=== PATIENT | male | born 2000 | race Caucasian/White ===

== ENCOUNTER 2022-03-30 14:41 | Inpatient (IN) ==
[2022-03-30] MEDS ORDERED: SODIUM CHLORIDE 0.9% 1000ML 1,000 ML IV SCH (15:16)
--- NOTE | 2022-03-30 15:30 | Emergency Department Note ---
Impression & Plan Light-headedness, Pneumonia, Fever and chills, Sore throat ED Provider Note CHIEF COMPLAINT: Near syncope HISTORY OF PRESENT ILLNESS: Cam Orellana is a 22 year old male who presents to the Emergency Department for evaluation of persistent lightheadedness/dizziness, feeling as if he is going to pass out, which has been worsening since this morning. He states that his symptoms are constant but become worse with sitting/standing upright. He denies having any pain at this time but just states that he feels weak, tired and confused. The patient was recently ill with fevers/chills, body aches, sore throat, chest tightness and cough. He was seen in this ED on 03/27/22 for these symptoms and was diagnosed with pneumonia for which he was prescribed Cefdinir/Doxycycline. The patient did take the antibiotic as prescribed but states that he developed a rash which was thought to be an allergic reaction to the medication. He was seen in the ED again yesterday for this and was told to stop taking the Cefdinir/Doxycycline, switched to a Z-pack instead. The patient has been taking this antibiotic as prescribed and states that his rash has completely resolved. He has also been taking Tylenol, ibuprofen, Delsym, Melatonin and Benadryl with some improvement. He does state that his breathing and chest tightness has improved, however, he has continued with intermittent perceived fevers/chills and a worsening sore throat over the past few days. He then developed the lightheadedness/dizziness in addition to the other symptoms as described above today. The patient states that he has been drinking hot tea and some water, only eating pretzels and small things throughout the day, though he does feel that he is getting enough. He notes mild abdominal pain and has 1-2 movements of diarrhea daily (states started after taking the initial antibiotics). No nausea or vomiting. Due to his ongoing symptoms, he presents to the ED for further evaluation today. REVIEW OF SYSTEMS: 10 systems were reviewed and were negative unless otherwise stated in HPI as above PHYSICAL EXAM: VITALS: Vitals are noted on the nurse's note and reviewed by myself. Mildly tachycardic and hypertensive. Improved on recheck. Afebrile. Additional vital signs stable General: Resting supine in bed, appears tired but no acute distress HEENT: Normocephalic, pupils 3 mm and reactive to light with EOMI, bilaterally. Bilateral TMs clear without abnormal bulging or fluid. Mucous membranes moist, bilateral tonsillar edema and erythema, no exudates. No uvular deviation, Airway patent Neck: Mild bilateral lymphadenopathy without significant tenderness to palpation, mild paraspinal tenderness but ROM intact without significant pain, no meningismus Resp: Good inspiratory effort on room air, lung sounds clear bilaterally without wheezing, crackles or rales, chest wall non-tender CV: Tachycardic rate, regular rhythm, normal S1-S2, peripheral pulses palpated Abd: Soft, non-distended, mild tenderness to palpation of the left lower quadrant, no rebound, guarding or rigidity MSK: Moving all extremities without apparent pain or difficulty Integumentary: Warm, dry, no appreciable rash Neuro: Awake, alert and oriented x 3, interacting and answering questions appropriately Differential diagnosis includes viral syndrome, bacterial infection, pharyngitis, mononucleosis, COVID-19, pneumonia, influenza, bronchitis, meningitis, cardiac etiology, electrolyte abnormality, BPPV, dehydration, as well as others were entertained. EMERGENCY DEPARTMENT COURSE: Physical exam and history were performed. Nursing triage notes, EMR, and medication list were personally reviewed. Patient appears to have persistent lightheadedness/dizziness, feeling as if he is going to pass out, which is been worsening since this morning. Of note, he was recently diagnosed with pneumonia for which he was initially prescribed cefd inir and doxycycline, however after having an allergic reaction to these medications, this was stopped and he was switched to azithromycin yesterday. Additional history as described above. See physical exam as noted above. Continuous cardiac rehabilitation specialist: Order was placed for continuous cardiac rehabilitation specialist. Patient was placed on the cardiac rehabilitation specialist. Patient was noted to be in sinus tachycardia at an initial rate of 109 bpm. EKG was obtained and reviewed by myself. This did show normal sinus rhythm at 81 bpm. There was an incomplete right bundle branch block, however when compared to study from 11/10/2021, no significant change was found. The patient was offered medication. IV access was established and he was given Tylenol 1000 mg and NSS 1 L. Labs were obtained and reviewed by myself as below. Of note, no concern for leukocytosis with a WBC of 5.03. Very mild anemia with hemoglobin 13.6. Electrolytes WNL. Renal indices stable. LFTs nondiagnostic. PT/INR WNL, PTT mildly elevated at 32.5 seconds. D-dimer also mildly elevated at 660. Monoscreen negative. Chest x-ray was obtained and showed progressively worsened left basilar opacities suggestive of pneumonia. Upon reevaluation, the patient was still feeling very lightheaded/dizzy which had not improved after receiving the IV fluids, Tylenol and after drinking several glasses of water and eating crackers. Given his elevated D-dimer and worsening findings on the chest x-ray, I did discuss with him about obtaining a CT angiogram of his chest to assess for possible PE. Given his ongoing lightheadedness/dizziness, also discussed obtaining a CAT scan of his head for further evaluation. Patient agreed to obtain both of the studies. CAT scan of the head was obtained and was reviewed by radiologist and myself as below. Imaging was negative for acute intracranial findings. CTA chest was also obtained and was negative for PE. There was moderate left lower lobe consolidation consistent with pneumonia, minimal airspace opacity within the left upper lobe and right middle lobe. Prominent left hilar lymph nodes likely reactive. Trace left pleural effusion. With the findings of worsening pneumonia on imaging, the patient would likely benefit from modification of antibiotics. Due to his allergies, he was started on Levaquin 750 mg with plans to continue this once daily for a total of 5 days. Upon reevaluation, the patient was still feeling very lightheaded and dizzy. I discussed the results of the above findings with him. He was given meclizine 25 mg for possible vertiginous cause but this did not help his symptoms, either. Due to his ongoing symptoms with third visit to the ED in the last several d ays,I feel that he would benefit from continued management in the hospital. Also discussed this with my attending physician, Dr. Sawyer. I did contact Dr. Johnson of the [facility] hospitalist group. She agreed to evaluate the patient. The patient verbalized understanding and agreement with the treatment plan as above. The chart was completed utilizing [employer] Speech Voice Recognition Software. Grammatical errors, random word insertions, pronoun errors, and incomplete sentences are an occasional consequence of this system due to software limitations, ambient noise, and hardware issues. Any formal questions or concerns about the content, text, or information contained within the body of this dictation should be directly addressed to the provider for clarification. Past Med/Surg History Medical History No acute medical problems Surgical History No pertinent past surgical history Social History Smoking Status: Smoker, status unknown Tobacco Type: Cigarettes and E-cigarettes / Vaping Cigarettes Per Day: OCCASIONALLY DOES ON WEEKENDS AT COLLEGE WITH FRIENDS.; Second Hand Exposure: No; Do You Dip or Chew Tobacco: No; Hx Alcohol Use: Yes Alcohol type: beer Hx Substance Use: No Preferred Language: Spanish Communication Ability: Effective [employer] Required: No Beliefs That Will Affect Care: None Current Living Situation: Other Current Living Situation Comment: COLLEGE STUDENT LIVES WITH ROOMMATE Other Information That Helps Us Care for You: No Feels Safe at Home: Yes Safety Concerns: Feels Safe At This Time Assistive Devices: None Allergies Allergies Allergy/AdvReac Type Severity Reaction Status Date / Time cefdinir Allergy Intermediate RASH--WAS Verified 03/30/22 16:30 TAKING DOXYCYCLINE AT SAME TIME. doxycycline Allergy Intermediate RASH--WAS Verified 03/30/22 16:30 TAKING CEFDINIR AT THE SAME TIME. milk AdvReac Intermediate Gastrointestinal Verified 03/30/22 16:30 Upset Home Meds Home Medications Medication Instructions Recorded Confirmed acetaminophen 500 mg tablet 1,000 mg PO DIRECTED PRN 03/30/22 03/30/22 (Tylenol Extra Strength) ibuprofen 200 mg tablet (Advil) 600 mg PO DIRECTED PRN 03/30/22 03/30/22 Previous Rx's Medication Instructions Recorded azithromycin 250 mg tablet See Rx Instructions .ROUTE 03/29/22 (Zithromax Z-Efrain) .COMPLEX #6 tab levofloxacin 750 mg tablet 750 mg PO DAILY 4 Days #4 tab 03/30/22 Results & Data (ED) Vital Signs Vital Signs - 24 hr 03/30/22 14:43 03/30/22 15:32 03/30/22 17:15 Temperature 36.6 C 37.2 C Temperature Source Temporal Artery Scan Oral Pulse Rate - Lying Pulse Rate - Sitting Pulse Rate - Standing Pulse Rate 109 H Pulse Rate [Left Radial] 81 96 H Pulse Rate from SpO2 Sensor Pulse Rhythm [Left Radial] Regular Pulse Strength [Left Radial] Respiratory Rate 18 20 18 Respiratory Effort / Characteristics Non-Labored Respiratory Depth Normal Respiratory Pattern Regular Blood Pressure - Lying Blood Pressure - Sitting Blood Pressure- Standing Blood Pressure 148/87 H Blood Pressure [Left Arm] 115/71 Blood Pressure Mean 107 Blood Pressure Mean [Left Arm] 85 Blood Pressure Position [Left Arm] Pulse Oximetry 97 97 100 Oxygen Delivery Method Room Air Room Air Room Air Sepsis Recent Fever Within 48 Hours No Sepsis New/Unexplained Change in Mental Status No Sepsis Action Taken by Nursing No Action Required 03/30/22 18:26 03/30/22 18:30 03/30/22 18:51 Temperature Temperature Source Pulse Rate - Lying Pulse Rate - Sitting Pulse Rate - Standing Pulse Rate 93 H 89 92 H Pulse Rate [Left Radial] Pulse Rate from SpO2 Sensor 93 H 91 H 92 H Pulse Rhythm [Left Radial] Pulse Strength [Left Radial] Respiratory Rate 22 22 14 Respiratory Effort / Characteristics Respiratory Depth Respiratory Pattern Blood Pressure - Lying Blood Pressure - Sitting Blood Pressure- Standing Blood Pressure 128/89 139/89 Blood Pressure [Left Arm] Blood Pressure Mean 102 105 Blood Pressure Mean [Left Arm] Blood Pressure Position [Left Arm] Pulse Oximetry 99 99 99 Oxygen Delivery Method Sepsis Recent Fever Within 48 Hours Sepsis New/Unexplained Change in Mental Status Sepsis Action Taken by Nursing 03/30/22 19:00 03/30/22 19:30 03/30/22 20:00 Temperature Temperature Source Pulse Rate - Lying Pulse Rate - Sitting Pulse Rate - Standing Pulse Rate 93 H 92 H 86 Pulse Rate [Left Radial] Pulse Rate from SpO2 Sensor 91 H 91 H 87 Pulse Rhythm [Left Radial] Pulse Strength [Left Radial] Respiratory Rate 18 13 21 Respiratory Effort / Characteristics Respiratory Depth Respiratory Pattern Blood Pressure - Lying Blood Pressure - Sitting Blood Pressure- Standing Blood Pressure 126/74 130/80 139/75 Blood Pressure [Left Arm] Blood Pressure Mean 91 96 96 Blood Pressure Mean [Left Arm] Blood Pressure Position [Left Arm] Pulse Oximetry 96 98 97 Oxygen Delivery Method Sepsis Recent Fever Within 48 Hours Sepsis New/Unexplained Change in Mental Status Sepsis Action Taken by Nursing 03/30/22 20:06 03/30/22 20:21 03/30/22 20:22 Temperature Temperature Source Pulse Rate - Lying 105 H Pulse Rate - Sitting 113 H Pulse Rate - Standing 115 H Pulse Rate 90 106 H Pulse Rate [Left Radial] Pulse Rate from SpO2 Sensor 92 H 106 H Pulse Rhythm [Left Radial] Pulse Strength [Left Radial] Respiratory Rate 17 21 Respiratory Effort / Characteristics Respiratory Depth Respiratory Pattern Blood Pressure - Lying 125/64 Blood Pressure - Sitting 139/87 Blood Pressure- Standing 135/84 Blood Pressure 125/64 135/84 Blood Pressure [Left Arm] Blood Pressure Mean 84 101 Blood Pressure Mean [Left Arm] Blood Pressure Position [Left Arm] Pulse Oximetry 99 99 Oxygen Delivery Method Sepsis Recent Fever Within 48 Hours Sepsis New/Unexplained Change in Mental Status Sepsis Action Taken by Nursing 03/30/22 20:30 03/30/22 20:49 03/30/22 21:00 Temperature 36.9 C Temperature Source Oral Pulse Rate - Lying Pulse Rate - Sitting Pulse Rate - Standing Pulse Rate 91 H 98 H Pulse Rate [Left Radial] 82 Pulse Rate from SpO2 Sensor Pulse Rhythm [Left Radial] Regular Pulse Strength [Left Radial] Normal Respiratory Rate 21 18 13 Respiratory Effort / Characteristics Non-Labored Spontaneous Respiratory Depth Normal Respiratory Pattern Blood Pressure - Lying Blood Pressure - Sitting Blood Pressure- Standing Blood Pressure 115/67 115/67 Blood Pressure [Left Arm] 115/67 Blood Pressure Mean 83 83 Blood Pressure Mean [Left Arm] 83 Blood Pressure Position [Left Arm] Sitting Pulse Oximetry 96 Oxygen Delivery Method Room Air Sepsis Recent Fever Within 48 Hours Sepsis New/Unexplained Change in Mental Status Sepsis Action Taken by Nursing 03/30/22 21:30 Temperature Temperature Source Pulse Rate - Lying Pulse Rate - Sitting Pulse Rate - Standing Pulse Rate 98 H Pulse Rate [Left Radial] Pulse Rate from SpO2 Sensor 98 H Pulse Rhythm [Left Radial] Pulse Strength [Left Radial] Respiratory Rate 21 Respiratory Effort / Characteristics Respiratory Depth Respiratory Pattern Blood Pressure - Lying Blood Pressure - Sitting Blood Pressure- Standing Blood Pressure 123/69 Blood Pressure [Left Arm] Blood Pressure Mean 87 Blood Pressure Mean [Left Arm] Blood Pressure Position [Left Arm] Pulse Oximetry 96 Oxygen Delivery Method Sepsis Recent Fever Within 48 Hours Sepsis New/Unexplained Change in Mental Status Sepsis Action Taken by Nursing Laboratory Data Result diagrams: 03/30/22 15:37 03/30/22 15:37 Lab Results 03/30/22 03/30/22 03/30/22 Range/Units 15:37 15:37 15:37 WBC 5.03 (4.8-10.8) K/uL RBC 4.98 (4.7-6.1) M/uL Hgb 13.6 L (14.0-18.0) g/dL Hct 41.5 L (42-52) % MCV 83.3 (80-100) fL MCH 27.3 (25-34) pg MCHC 32.8 (32-36) g/dL RDW Std Deviation 41.8 (36.4-46.3) fL RDW Coeff of Max 13.7 (11.5-14.5) % Plt Count 167 (130-400) K/uL MPV 9.8 (7.4-10.4) fL Immature Gran % (Auto) 0.4 % Neut % (Auto) 73.6 % Lymph % (Auto) 11.3 % Bradley % (Auto) 11.9 % Eos % (Auto) 2.4 % Baso % (Auto) 0.4 % Neut # (Auto) 3.70 (1.4-6.5) K/uL Lymph # (Auto) 0.57 L (1.2-3.4) K/uL Bradley # (Auto) 0.60 H (0.11-0.59) K/uL Eos # (Auto) 0.12 (0-0.5) K/uL Baso # (Auto) 0.02 (0-0.2) K/uL Immature Gran # (Auto) 0.02 (0.00-0.02) K/uL PT 11.4 (9.0-12.0) Seconds INR 1.1 (0.9-1.1) APTT 32.5 H (21.0-31.0) Seconds PTT Ratio 1.2 D-Dimer (0-500) ug/L FEU Sodium 138 (136-145) mmol/L Potassium 3.6 (3.5-5.1) mmol/L Chloride 105 (98-107) mmol/L Carbon Dioxide 25 (21-32) mmol/L Anion Gap 8 (3-11) BUN 8 (6-23) mg/dl Creatinine 0.70 (0.6-1.4) mg/dl Est Cr Clr Drug Dosing Not Reportable Est GFR ( Amer) > 150.0 ml/min Est GFR (Non-Af Amer) 134.0 ml/min BUN/Creatinine Ratio 11.4 (10-20) Glucose 72 (70-99(Fasting)) mg/dl Calcium 9.0 (8.5-10.1) mg/dl Total Bilirubin 0.4 (0.2-1.0) mg/dl AST 38 (13-39) U/L ALT 42 (7-52) U/L Alkaline Phosphatase 69 (34-104) U/L Troponin I High Sens 4.2 (0-20) pg/ml Total Protein 7.5 (6.0-8.3) gm/dl Albumin 3.9 (3.4-5.0) gm/dl Globulin 3.6 (2.5-4.0) gm/dl Albumin/Globulin Ratio 1.1 (0.9-2) Monoscreen (Negative) 03/30/22 03/30/22 Range/Units 15:37 17:28 WBC (4.8-10.8) K/uL RBC (4.7-6.1) M/uL Hgb (14.0-18.0) g/dL Hct (42-52) % MCV (80-100) fL MCH (25-34) pg MCHC (32-36) g/dL RDW Std Deviation (36.4-46.3) fL RDW Coeff of Max (11.5-14.5) % Plt Count (130-400) K/uL MPV (7.4-10.4) fL Immature Gran % (Auto) % Neut % (Auto) % Lymph % (Auto) % Bradley % (Auto) % Eos % (Auto) % Baso % (Auto) % Neut # (Auto) (1.4-6.5) K/uL Lymph # (Auto) (1.2-3.4) K/uL Bradley # (Auto) (0.11-0.59) K/uL Eos # (Auto) (0-0.5) K/uL Baso # (Auto) (0-0.2) K/uL Immature Gran # (Auto) (0.00-0.02) K/uL PT (9.0-12.0) Seconds INR (0.9-1.1) APTT (21.0-31.0) Seconds PTT Ratio D-Dimer 660 H* (0-500) ug/L FEU Sodium (136-145) mmol/L Potassium (3.5-5.1) mmol/L Chloride (98-107) mmol/L Carbon Dioxide (21-32) mmol/L Anion Gap (3-11) BUN (6-23) mg/dl Creatinine (0.6-1.4) mg/dl Est Cr Clr Drug Dosing Est GFR ( Amer) ml/min Est GFR (Non-Af Amer) ml/min BUN/Creatinine Ratio (10-20) Glucose (70-99(Fasting)) mg/dl Calcium (8.5-10.1) mg/dl Total Bilirubin (0.2-1.0) mg/dl AST (13-39) U/L ALT (7-52) U/L Alkaline Phosphatase (34-104) U/L Troponin I High Sens (0-20) pg/ml Total Protein (6.0-8.3) gm/dl Albumin (3.4-5.0) gm/dl Globulin (2.5-4.0) gm/dl Albumin/Globulin Ratio (0.9-2) Monoscreen Negative (Negative) Administered Medications Acetaminophen (Acetaminophen 325 Mg Tab) 650 mg PO Q4H PRN PRN Reason: Pain or Fever Stop: 04/29/22 23:10 Last Admin: 03/31/22 00:19 Dose: 650 mg Documented by: [id number] Discontinued Medications Acetaminophen (Acetaminophen 500 Mg Tab) 1,000 mg PO NOW STA Stop: 03/30/22 18:28 Last Admin: 03/30/22 18:33 Dose: 1,000 mg Documented by: [id number] Sodium Chloride (Nss 1000ml) 1,000 mls @ 999 mls/hr IV .Q1H1M SUSAN Stop: 03/30/22 16:16 Last Infusion: 03/30/22 16:44 Dose: 0 mls/hr Documented by: [id number] Admin: 03/30/22 15:41 Dose: 999 mls/hr Documented by: [id number] Lactated Ringer's (Lr) 1,000 mls @ 999 mls/hr IV .Q1H1M STA Stop: 03/30/22 22:31 Last Infusion: 03/30/22 23:50 Dose: 0 mls/hr Documented by: [id number] Admin: 03/30/22 22:08 Dose: 999 mls/hr Documented by: [id number] Ioversol (Optiray 320 125ml) 118 ml IV ONCE ONE Stop: 03/30/22 18:44 Last Admin: 03/30/22 18:47 Dose: 118 ml Documented by: [id number] Levofloxacin (Levofloxacin 750 Mg Tab) 750 mg PO ONE ONE Stop: 03/30/22 19:23 Last Admin: 03/30/22 19:49 Dose: 750 mg Documented by: [id number] Meclizine HCl (Meclizine Hcl 25 Mg Tab) 25 mg PO NOW STA Stop: 03/30/22 20:07 Last Admin: 03/30/22 20:23 Dose: 25 mg Documented by: [id number] Imaging Data Radiologist's Impression: Chest X-Ray 03/30/22 15:15 XR chest 1V portable HISTORY: 22 years-old Male recent pneumonia acute shortness of breath COMPARISON: Chest radiograph 03/27/2022 TECHNIQUE: AP view of the chest FINDINGS: Left basilar airspace opacities have progressively worsened from prior. Cardiomediastinal and hilar silhouettes are within normal limits. No pneumothorax, pleural effusion or overt pulmonary edema. Bones appear grossly intact. IMPRESSION: Progressively worsened left basilar opacities suggestive of pneumonia ACT 112: Negative or not required by law. The above report was generated using voice recognition software. It may contain grammatical, syntax or spelling errors. Electronically signed by: Paul Li M.D. 03/30/2022 4:20 PM Chest CTA 03/30/22 18:16 CT ANGIOGRAPHY OF THE CHEST, PULMONARY EMBOLUS PROTOCOL CLINICAL HISTORY: Near syncope. Chest pain. COMPARISON STUDY: Chest radiograph March 30, 2022. TECHNIQUE: Following IV administration of 118 mL of Optiray, helical axial images of the chest were obtained utilizing the pulmonary embolus protocol. Maximal intensity projections and sagittal and coronal reformats were viewed on an independent 3D workstation. IV contrast was administered without complication. Automated exposure control was utilized for the study. A dose lowering technique was utilized adhering to the principles of ALARA. CT DOSE: 1139.00 mGy.cm FINDINGS: No pulmonary emboli are identified. There is no thoracic aortic dissection. Size of the heart is normal. There is no pericardial effusion. No pneumothorax is present. There is a trace left pleural effusion. A few prominent left hilar lymph nodes are noted. These are likely reactive. Moderate left lower lobe consolidation is noted. Minimal airspace opacity within the left and right lower lobe is present. Central airways are patent. There is no cavitation. No acute fracture within the visualized bony thorax. Visualized portions of the upper abdomen are unremarkable. Note is made of a 1.5 cm right lobe thyroid nodule. This contains a calcification. This nodule may be taller than wide. IMPRESSION: 1. No pulmonary emboli identified. 2. Moderate left lower lobe consolidation consistent with pneumonia. Minimal airspace opacity within the left upper lobe and right middle lobe. 3. Prominent left hilar lymph nodes which are likely reactive. 4. Trace left pleural effusion. 5. Indeterminate 1.5 cm right lobe thyroid nodule. Nonemergent thyroid ultrasound is recommended. 5. ACT 112: Positive. There are findings on this exam that require communication between the performing entity and the patient following Patient Test Result Information Act ([place] Act 112) guidelines. Electronically signed by: Cam Riojas M.D. 03/30/2022 6:[address] 03/30/22 18:16 CT OF THE HEAD WITHOUT CONTRAST CLINICAL HISTORY: near syncope COMPARISON STUDY: No previous studies for comparison. TECHNIQUE: Helical axial images of the head were obtained without IV contrast. Automated exposure control was utilized for the study. A dose lowering technique was utilized adhering to the principles of ALARA. FINDINGS: No acute intracranial hemorrhage, midline shift or mass effect is present. The ventricular system is unremarkable. The basal cisterns are patent. No extra-axial collections are present. There are no findings to suggest acute dural sinus thrombosis or acute territorial infarct. No significant calvarial abnormalities are present. Visualized portions of the sinuses and mastoid air cells are clear. IMPRESSION: No acute intracranial findings. ACT 112: Negative or not required by law. Electronically signed by: Cam Riojas M.D. 03/30/2022 6:53 PM Discharge Plan Visit Data Chief Complaint: Syncope (Near Syncope) Stated Complaint: LIGHT HEADED, DIZZINESS, VOMITING, COUGH ED Provider: Tod Sawyer ED Midlevel Provider: Fide Bermudez Discharge Problem: Light-headedness, Pneumonia, Fever and chills, Sore throat Patient Disposition: Admitted As Inpatient Condition: Good Discharge Instructions Interventions: ED Discharge Assessment Last Done: 03/30/22 22:48
[2022-03-30 16:03] LABS: INR 1.1 (0.9-1.1); Partial Thromboplastin Ratio 1.2; Partial Thromboplastin Time 32.5 Seconds (21.0-31.0); Prothrombin Time 11.4 Seconds (9.0-12.0)
[2022-03-30 16:14] LABS: Alanine Aminotransferase 42 U/L (7-52); Albumin Globulin Ratio 1.1 (0.9-2); Albumin Level 3.9 gm/dl (3.4-5.0); Alkaline Phosphatase 69 U/L (34-104); Anion Gap 8 (3-11); Aspartate Aminotransferase 38 U/L (13-39); BUN Creatinine Ratio 11.4 (10-20); Bilirubin,Total 0.4 mg/dl (0.2-1.0); Blood Urea Nitrogen 8 mg/dl (6-23); Carbon Dioxide 25 mmol/L (21-32); Chloride 105 mmol/L (98-107); Est GFR (African American) > 150.0 ml/min; Globulin 3.6 gm/dl (2.5-4.0); Glucose 72 mg/dl (70-99(Fasting)); Potassium 3.6 mmol/L (3.5-5.1); Sodium 138 mmol/L (136-145); Total Protein 7.5 gm/dl (6.0-8.3)
[2022-03-30 16:20] LABS: Troponin I High Sensitivity 4.2 pg/ml (0-20)
--- NOTE | 2022-03-30 16:23 | XRay Report ---
XR chest 1V portable HISTORY: 22 years-old Male recent pneumonia acute shortness of breath COMPARISON: Chest radiograph 03/27/2022 TECHNIQUE: AP view of the chest FINDINGS: Left basilar airspace opacities have progressively worsened from prior. Cardiomediastinal and hilar s ilhouettes are within normal limits. No pneumothorax, pleural effusion or overt pulmonary edema. Bone s appear grossly intact. IMPRESSION: Progressively worsened left basilar opacities suggestive of pneumonia ACT 112: Negative or not required by law. The above report was generated using voice recognition software. It may contain grammatical, syntax o r spelling errors. Electronically signed by: Paul Li M.D. 03/30/2022 4:20 PM
[2022-03-30 16:26] LABS: Basophils # (auto) 0.02 K/uL (0-0.2); Basophils % (auto) 0.4 %; Eosinophils # (auto) 0.12 K/uL (0-0.5); Eosinophils % (auto) 2.4 %; Hematocrit (blood only) 41.5 % (42-52); Hemoglobin 13.6 g/dL (14.0-18.0); Immature Granulocytes # (auto) 0.02 K/uL (0.00-0.02); Immature Granulocytes % (auto) 0.4 %; Lymphocytes # (auto) 0.57 K/uL (1.2-3.4); Lymphocytes % (auto) 11.3 %; Mean Corpuscular Hemoglobin 27.3 pg (25-34); Mean Corpuscular Hgb Conc 32.8 g/dL (32-36); Mean Corpuscular Volume 83.3 fL (80-100); Mean Platelet Volume 9.8 fL (7.4-10.4); Monocytes % (auto) 11.9 %; Neutrophils % (auto) 73.6 %; Platelet Count 167 K/uL (130-400); RDW Coefficient of Variation 13.7 % (11.5-14.5); RDW Standard Deviation 41.8 fL (36.4-46.3); Red Blood Count 4.98 M/uL (4.7-6.1); White Blood Count 5.03 K/uL (4.8-10.8)
[2022-03-30 18:08] LABS: D Dimer 660 ug/L FEU (0-500)
[2022-03-30] MEDS ORDERED: ACETAMINOPHEN 500 MG TAB PO STA (18:27)
[2022-03-30] MEDS ORDERED: OPTIRAY 320 125ml IV ONE (18:43)
--- NOTE | 2022-03-30 18:54 | CT Scan Report ---
CT OF THE HEAD WITHOUT CONTRAST CLINICAL HISTORY: near syncope COMPARISON STUDY: No previous studies for comparison. TECHNIQUE: Helical axial images of the head were obtained without IV contrast. Automated exposure con trol was utilized for the study. A dose lowering technique was utilized adhering to the principles o f ALARA. FINDINGS: No acute intracranial hemorrhage, midline shift or mass effect is present. The ventricular system is unremarkable. The basal cisterns are patent. No extra-axial collections are present. There are no findings to suggest acute dural sinus thrombosis or acute territorial infarct. No significant calvarial abnormalities are present. Visualized portions of the sinuses and mastoid air cells are elham ar. IMPRESSION: No acute intracranial findings. ACT 112: Negative or not required by law. Electronically signed by: Cam Riojas M.D. 03/30/2022 6:53 PM
--- NOTE | 2022-03-30 19:02 | CT Scan Report ---
CT ANGIOGRAPHY OF THE CHEST, PULMONARY EMBOLUS PROTOCOL CLINICAL HISTORY: Near syncope. Chest pain. COMPARISON STUDY: Chest radiograph March 30, 2022. TECHNIQUE: Following IV administration of 118 mL of Optiray, helical axial images of the chest were o btained utilizing the pulmonary embolus protocol. Maximal intensity projections and sagittal and cor onal reformats were viewed on an independent 3D workstation. IV contrast was administered without co mplication. Automated exposure control was utilized for the study. A dose lowering technique was ut ilized adhering to the principles of ALARA. CT DOSE: 1139.00 mGy.cm FINDINGS: No pulmonary emboli are identified. There is no thoracic aortic dissection. Size of the he art is normal. There is no pericardial effusion. No pneumothorax is present. There is a trace left pl eural effusion. A few prominent left hilar lymph nodes are noted. These are likely reactive. Moderate left lower lobe consolidation is noted. Minimal airspace opacity within the left and right lower lob e is present. Central airways are patent. There is no cavitation. No acute fracture within the visual ized bony thorax. Visualized portions of the upper abdomen are unremarkable. Note is made of a 1.5 cm right lobe thyroid nodule. This contains a calcification. This nodule may be taller than wide. IMPRESSION: 1. No pulmonary emboli identified. 2. Moderate left lower lobe consolidation consistent with pneumonia. Minimal airspace opacity within the left upper lobe and right middle lobe. 3. Prominent left hilar lymph nodes which are likely reactive. 4. Trace left pleural effusion. 5. Indeterminate 1.5 cm right lobe thyroid nodule. Nonemergent thyroid ultrasound is recommended. 5. ACT 112: Positive. There are findings on this exam that require communication between the performing entity and the patient following Patient Test Result Information Act ([place] Act 112) guidelines. Electronically signed by: Cam Riojas M.D. 03/30/2022 6:59 PM
[2022-03-30] MEDS ORDERED: levoFLOXacin 750 MG TAB PO ONE (19:22)
[2022-03-30] MEDS ORDERED: MECLIZINE HCL 25 MG TAB PO STA (20:06)
[2022-03-30] MEDS ORDERED: LACTATED RINGER'S 1,000 ML IV STA (21:31)
--- NOTE | 2022-03-30 22:26 | History & Physical Report ---
Date of Service March 30, 2022 Assessment & Plan (1) Pneumonia: Plan: Pneumonia left lower lobe- opacity on imaging, fevers previously, dyspnea, green sputum production - no oxygen requirement - Levaquin given in EMD- this plus his Azithromycin appropriate coverage overn ight- defer to rounding team in AM for coverage - No concern currently for failure or atypical - symptoms improving - PCT pending - Trace pleural effusion noted on CT scan of chest- follow radiographically (2) Light-headedness: Plan: Described as dizziness without syncope - CT head negative - no seizure - Likley related to benadryl useage at 50mg PO q6 hours - consistent with his dry mucous membranes and tenting skin - Pedraza's solution 1Liter now - Will check TSH and Cortisol (3) Sore throat: Plan: Associated with dry scratchy voice- no tenderness to lymph nodes - no exudates to tonsils or adenoids - Continue supportive care at this time (4) Incidentaloma of thyroid gland: Plan: 1.5 cm right lobe thyroid nodule - follow up with ultrasound imaging - in house or outpatient - TSH with reflex T4 pending - no goiter or tenderness noted with palpation History of Present Illness Primary Care Provider: NO PCP 22 YOM with medical history of: PNA. Patient comes back to the EMD today complaints of dizziness. Overall the patient has been being treated for pneumonia which appeared to start at the beginning of March. He was originally treated in the [facility] on 27Mar2022, he was febrile and was associated with dyspnea, left sided chest tightness, and sore throat. He was given Cefdinir and released. Following that he came back to the [facility] on for concerns of skin rash that was recorded ast itchy and mostly located on his hands and feet as well as some on upper trunk and neck. He was transitioned to Azithromycin and this resulted in resolving of his rash and itching. The patient also endorses yesterday he started taking Benadryl 50mg by mouth every 6 hours. Upon further questioning this is also when his dizziness started. He feels it is hard to describe but just like an overall lightheaded ness feeling, this was associated with some jitteriness as well as increase in dry mouth and sore throat. In the EMD the patient had a D-dimer drawn which was elevated and had a CTA of his chest performed and for his dizziness had CT non-con of the head completed without acute process. He had an ECG completed which was concerned for incomplete RBB and the hospitalist service was consulted for admission. The patient's symptoms are likely related to his Benadryl dosage. Will place on telemetry overnight as well as check ECHO in the morning. He was given Levaquin in conjunction with his Azithromycin that he took this morning. This will be sufficient coverage until morning. The patient [place] fr[place], he knows one other fraternity brother that was ill with pneumonia. He denies any mold or standing water in or around the house. He is without WBC elevation and not hypoxic at this time. Will provide another liter or Pedraza's solution for hydration overnight as he is with dry mucous membranes and has not been able to take much fluid in orally over the past 3 days secondary to sleeping as well as coughing. He was also noted to have an incidental thyroid nodule on his CT scan of chest- 1.5 cm right lobe thyroid nodule- will send TSH and Cortisol levels and follow up imaging should be performed. Patient was informed of this. COVID test on admission is: NEGATIVE Allergies Allergy/AdvReac Type Severity Reaction Status Date / Time cefdinir Allergy Intermediate RASH--WAS Verified 03/30/22 16:30 TAKING DOXYCYCLINE AT SAME TIME. doxycycline Allergy Intermediate RASH--WAS Verified 03/30/22 16:30 TAKING CEFDINIR AT THE SAME TIME. milk AdvReac Intermediate Gastrointestinal Verified 03/30/22 16:30 Upset Home Medications Medication Instructions Recorded Confirmed Type azithromycin 250 mg tablet See Rx Instructions .ROUTE 03/29/22 03/30/22 Rx (Zithromax Z-Efrain) .COMPLEX #6 tab acetaminophen 500 mg tablet 1,000 mg PO DIRECTED PRN 03/30/22 03/30/22 History (Tylenol Extra Strength) ibuprofen 200 mg tablet (Advil) 600 mg PO DIRECTED PRN 03/30/22 03/30/22 History levofloxacin 750 mg tablet 750 mg PO DAILY 4 Days #4 tab 03/30/22 Rx Past Med/Surg History Medical History No acute medical problems Surgical History No pertinent past surgical history Social History Smoking Status: Smoker, status unknown Tobacco Type: Cigarettes and E-cigarettes / Vaping Cigarettes Per Day: OCCASIONALLY DOES ON WEEKENDS AT COLLEGE WITH FRIENDS.; Second Hand Exposure: No; Do You Dip or Chew Tobacco: No; Hx Alcohol Use: Yes Alcohol type: beer Hx Substance Use: No Preferred Language: Mozambican Communication Ability: Effective Sales Manager [place] Required: No Beliefs That Will Affect Care: None Current Living Situation: Other Current Living Situation Comment: [employer]LEGE STUDENT LIVES WITH ROOMMATE Other Information That Helps Us Care for You: No Feels Safe at Home: Yes Safety Concerns: Feels Safe At This Time Assistive Devices: None Review of Systems Review of Systems: REVIEW OF SYSTEMS: Constitutional: (+) subjective fever, sweats, chills Eyes: No diplopia, no worsening or blurred vision ENT: (+) sore throat, dizziness, normal hearing, no trouble swallowing Respiratory: (+) cough, sputum, dyspnea on exertion Cardiovascular: No chest pain, tightness or palpitations Abdomen: No pain, nausea, vomiting, diarrhea or constipation Musculoskeletal: No joint pain, calf pain, swelling Neurologic: No weakness, numbness/tingling, or balance problems Psychiatric: No anxiety or depression Skin: (+) rash that has resolved Physical Exam Physical Exam: PHYSICAL EXAM: General: awake, alert, no apparent distress Head: Normocephalic, atraumatic ENT: PERRL, EOMI, no pharyngeal exudate, mucous membranes dry Neuro: AAO x 3, speech clear and appropriate, strength intact bilaterally 5/5, sensation intact and equal all extremities and dermatomes, no pronator drift- negative brudzinski's and Kergnig's Chest: equal rise and fall of the chest, no accessory muscle use, no heaves or thrills, scattered rhonchi bilaterally LT>RT, egophony on the left lower lobe Cardiac: Regular rate and rhythm, telemetry reviewed- sinus tach with any movement, skin warm dry, cap refill <3 seconds, peripheral pulses +2 no JVD, no murmur, poor skin turgor GI: NABS x 4 quadrants, soft, nontender to palpation, no rebound, guarding or tenderness : Spontaneously voiding, no pain, no CVA tenderness, Extremities: Normal inspection, no peripheral edema or erythema, calfs nontender to palpation Psych: Normal mood and affect Skin: no rash or erythema Results & Data Results & Data ([facility]) Vital Signs (Past 12 Hours) Vital Signs Temp Pulse Pulse Resp BP BP Pulse Ox 03/30/22 20:30 91 H 21 115/67 03/30/22 20:22 106 H 21 135/84 99 03/30/22 20:21 90 17 125/64 99 03/30/22 20:00 86 21 139/75 97 03/30/22 19:30 92 H 13 130/80 98 03/30/22 19:00 93 H 18 126/74 96 03/30/22 18:51 92 H 14 139/89 99 03/30/22 18:30 89 22 128/89 99 03/30/22 18:26 93 H 22 99 03/30/22 17:15 37.2 C 96 H 18 115/71 100 03/30/22 15:32 81 20 97 03/30/22 14:43 36.6 C 109 H 18 148/87 H 97 Laboratory Results Abnormal lab results 03/30/22 03/30/22 03/30/22 Range/Units 15:37 15:37 17:28 Hgb 13.6 L (14.0-18.0) g/dL Hct 41.5 L (42-52) % Lymph # (Auto) 0.57 L (1.2-3.4) K/uL [place] # (Auto) 0.60 H (0.11-0.59) K/uL APTT 32.5 H (21.0-31.0) Seconds D-Dimer 660 H* (0-500) ug/L FEU Diagnostic Findings Chest X-Ray 03/30/22 15:15 XR chest 1V portable HISTORY: 22 years-old Male recent pneumonia acute shortness of breath COMPARISON: Chest radiograph 03/27/2022 TECHNIQUE: AP view of the chest FINDINGS: Left basilar airspace opacities have progressively worsened from prior. Cardiome diastinal and hilar silhouettes are within normal limits. No pneumothorax, pleural effusion or overt pulmonary edema. Bones appear grossly intact. IMPRESSION: Progressively worsened left basilar opacities suggestive of pneumonia ACT 112: Negative or not required by law. The above report was generated using voice recognition software. It may contain grammatical, syntax or spelling errors. Electronically signed by: Paul Li M.D. 03/30/2022 4:20 PM Chest CTA 03/30/22 18:16 CT ANGIOGRAPHY OF THE CHEST, PULMONARY EMBOLUS PROTOCOL CLINICAL HISTORY: Near syncope. Chest pain. COMPARISON STUDY: Chest radiograph March 30, 2022. TECHNIQUE: Following IV administration of 118 mL of Optiray, helical axial images of the chest were obtained utilizing the pulmonary embolus protocol. Maximal intensity projections and sagittal and coronal reformats were viewed on an independent 3D workstation. IV contrast was administered without complication. Automated exposure control was utilized for the study. A dose lowering technique was utilized adhering to the principles of ALARA. CT DOSE: 1139.00 mGy.cm FINDINGS: No pulmonary emboli are identified. There is no thoracic aortic dissection. Size of the heart is normal. There is no pericardial effusion. No pneumothorax is present. There is a trace left pleural effusion. A few prominent left hilar lymph nodes are noted. These are likely reactive. Moderate left lower lobe consolidation is noted. Minimal airspace opacity within the left and right lower lobe is present. Central airways are patent. There is no cavitation. No acute fracture within the visualized bony thorax. Visualized portions of the upper abdomen are unremarkable. Note is made of a 1.5 cm right lobe thyroid nodule. This contains a calcification. This nodule may be taller than wide. IMPRESSION: 1. No pulmonary emboli identified. 2. Moderate left lower lobe consolidation consistent with pneumonia. Minimal a irspace opacity within the left upper lobe and right middle lobe. 3. Prominent left hilar lymph nodes which are likely reactive. 4. Trace left pleural effusion. 5. Indeterminate 1.5 cm right lobe thyroid nodule. Nonemergent thyroid ultrasound is recommended. 5. ACT 112: Positive. There are findings on this exam that require communication between the performing entity and the patient following Patient Test Result Information Act ([place] Act 112) guidelines. Electronically signed by: Cam Riojas M.D. 03/30/2022 6:[address] 03/30/22 18:16 CT OF THE HEAD WITHOUT CONTRAST CLINICAL HISTORY: near syncope COMPARISON STUDY: No previous studies for comparison. TECHNIQUE: Helical axial images of the head were obtained without IV contrast. Automated exposure control was utilized for the study. A dose lowering technique was utilized adhering to the principles of ALARA. FINDINGS: No acute intracranial hemorrhage, midline shift or mass effect is present. The ventricular system is unremarkable. The basal cisterns are patent. No extra-axial collections are present. There are no findings to suggest acute dural sinus thrombosis or acute territorial infarct. No significant calvarial abnormalities are present. Visualized portions of the sinuses and mastoid air cells are clear. IMPRESSION: No acute intracranial findings. ACT 112: Negative or not required by law. Electronically signed by: Cam Riojas M.D. 03/30/2022 6:53 PM Medications Administered Home Medications azithromycin 250 mg tablet (Zithromax Z-Efrain) See Rx Instructions .ROUTE .COMPLEX #6 tab 03/29/22 [Rx Confirmed 03/30/22] acetaminophen 500 mg tablet (Tylenol Extra Strength) 1,000 mg PO DIRECTED PRN 03/30/22 [History Confirmed 03/30/22] ibuprofen 200 mg tablet (Advil) 600 mg PO DIRECTED PRN 03/30/22 [History Confirmed 03/30/22] levofloxacin 750 mg tablet 750 mg PO DAILY 4 Days #4 tab 03/30/22 [Rx] Active Medications Lactated Ringer's (Lr) 1,000 mls @ 999 mls/hr IV .Q1H1M STA Stop: 03/30/22 22:31 Last Admin: 03/30/22 22:08 Dose: 999 mls/hr Documented by: Lactated Ringer's (Lr) 1,000 mls @ 999 mls/hr IV .Q1H1M STA Stop: 03/30/22 22:31 Last Admin: 03/30/22 22:08 Dose: 999 mls/hr Documented by: [id number] Discontinued Medications Acetaminophen (Acetaminophen 500 Mg Tab) 1,000 mg PO NOW STA Stop: 03/30/22 18:28 Last Admin: 03/30/22 18:33 Dose: 1,000 mg Documented by: [id number] Sodium Chloride (Nss 1000ml) 1,000 mls @ 999 mls/hr IV .Q1H1M SUSAN Stop: 03/30/22 16:16 Last Infusion: 03/30/22 16:44 Dose: 0 mls/hr Documented by: [id number] Admin: 03/30/22 15:41 Dose: 999 mls/hr Documented by: [id number] Ioversol (Optiray 320 125ml) 118 ml IV ONCE ONE Stop: 03/30/22 18:44 Last Admin: 03/30/22 18:47 Dose: 118 ml Documented by: [id number] Levofloxacin (Levofloxacin 750 Mg Tab) 750 mg PO ONE ONE Stop: 03/30/22 19:23 Last Admin: 03/30/22 19:49 Dose: 750 mg Documented by: [id number] Meclizine HCl (Meclizine Hcl 25 Mg Tab) 25 mg PO NOW STA Stop: 03/30/22 20:07 Last Admin: 03/30/22 20:23 Dose: 25 mg Documented by: [id number] ECG Additional Comments: Normal sinus rhythm Incomplete right bundle branch block Borderline ECG When compared with ECG of 10-NOV-2021 19:26, No significant change was found Code Status & VTE Plan Code Status CODE: FULL VTE: SCDS, ambulation VTE Prophylaxis Plan VTE Prophylaxis will be ordered: Yes Supervising Physician Co-Signing Physician Notes Patient seen and examined, chart reviewed, case discussed with NINFA Romero and I agree with the assessment and plan as above. In brief, patient is a 22yo male with recently diagnosed PNA s/p Cefdinir which resulted in a rash. Now on Azithromycin. Has been taking Benadryl 50mg po q 6 hours. Complaining of dizziness, lightheadedness and feeling jittery. Also with dry mouth and sore throat. Resting comfortably, arousable, answers questions appropriately NC/AT, PERRL, slightly dry mucus membranes +S1/S2, regular Lungs - scattered rhonchi, diminished breath sounds in LLL Abd - soft, NT/ND Ext - warm, well perfused, no clubbing/cyanosis/edema Labs and images reviewed. Normochromic/normocytic anemia with Hgb=13.6, Hct=41.5 Ddimer 660 CRP 14.64 Covid PCR NEGATIVE CTA chest with LLL consolidation consistent with PNA, minimal airspace opacity in DANISH, LML. Prominent lymph nodes, trace pleural effusion and indeterminate 1.5cm right thyroid nodule Assessment/Plan Tx of PNA - received Levaquin in ER, can be continued Thyroid imaging - nonemergent US can be ordered outpatient IVF, hold further Benadryl. Most likely contributing to dizziness Remainder of plan as above PG Care Time/CCT Total # of Minutes Spent Total Time Spent with Patient: Total time spent is greater than 50% in coordination of care (as documented) at patient's floor/unit and/or counseling patient: Coding Level of Care Code 32041 Initial Inpt Care Lvl 3 Diagnoses Pneumonia J18.9 Light-headedness R42 Sore throat J02.9 Incidentaloma of thyroid gland D49.7
[2022-03-30 22:51] LABS: Influenza A virus by PCR Negative (Neg); Influenza B virus by PCR Negative (Neg); RSV by PCR Negative (Neg); SARS CoV2 RNA(COVID-19) InHosp NEGATIVE (Negative)
[2022-03-30] MEDS ORDERED: ONDANSETRON INJ 2 MG/ML 2 ML VIAL IV PRN (23:11)
[2022-03-30] MEDS ORDERED: ACETAMINOPHEN 500 MG TAB PO PRN (23:11)
[2022-03-30] MEDS ORDERED: IBUPROFEN 600 MG TAB PO PRN (23:11)
[2022-03-31] MEDS: ACETAMINOPHEN 325 MG TAB PO PRN ×2 (00:19→08:13)
[2022-03-31 07:41] LABS: Basophils # (auto) 0.02 K/uL (0-0.2); Basophils % (auto) 0.4 %; Eosinophils # (auto) 0.13 K/uL (0-0.5); Eosinophils % (auto) 2.5 %; Hemoglobin 12.7 g/dL (14.0-18.0); Immature Granulocytes # (auto) 0.03 K/uL (0.00-0.02); Immature Granulocytes % (auto) 0.6 %; Mean Corpuscular Hgb Conc 33.4 g/dL (32-36); Mean Corpuscular Volume 83.7 fL (80-100); Mean Platelet Volume 9.3 fL (7.4-10.4); Monocytes # (auto) 0.79 K/uL (0.11-0.59); Monocytes % (auto) 14.9 %; Neutrophils # (auto) 3.42 K/uL (1.4-6.5); Neutrophils % (auto) 64.6 %; Platelet Count 176 K/uL (130-400); RDW Coefficient of Variation 13.6 % (11.5-14.5); RDW Standard Deviation 41.8 fL (36.4-46.3); Red Blood Count 4.54 M/uL (4.7-6.1); White Blood Count 5.29 K/uL (4.8-10.8)
--- NOTE | 2022-03-31 07:55 | Electrocardiogram Report ---
Test Reason : Blood Pressure : / mmHG Vent. Rate : 081 BPM Atrial Rate : 081 BPM P-R Int : 172 ms QRS Dur : 102 ms QT Int : 370 ms P-R-T Axes : 061 031 028 degrees QTc Int : 429 ms Normal sinus rhythm Incomplete right bundle branch block Borderline ECG When compared with ECG of 10-NOV-2021 19:26, No significant change was found Confirmed by Jef Livingston ([id number]) on 03/31/2022 7:54:56 AM Referred By: REFERRED SELF Confirmed By:Jef Livingston
[2022-03-31 08:05] LABS: Anion Gap 5 (3-11); Blood Urea Nitrogen 6 mg/dl (6-23); Calcium 8.9 mg/dl (8.5-10.1); Carbon Dioxide 29 mmol/L (21-32); Chloride 103 mmol/L (98-107); Creatinine Clr Calc Pharmacy 174.6 ml/min; Est GFR (African American) > 150.0 ml/min; Est GFR (Non-African American) 130.2 ml/min; Glucose 88 mg/dl (70-99(Fasting)); Magnesium 1.9 mg/dl (1.7-2.4); Potassium 3.9 mmol/L (3.5-5.1); Sodium 137 mmol/L (136-145)
[2022-03-31] MEDS ORDERED: AZITHROMYCIN 250 MG TAB PO SCH ×2 (09:00)
--- NOTE | 2022-03-31 09:56 | Discharge Summary ---
Date of Service March 31, 2022 Admission HPI Per Admitting Provider 22 YOM with medical history of: PNA. Patient comes back to the [facility] today complaints of dizziness. Overall the patient has been being treated for pneumonia which appeared to start at the beginning of March. He was originally treated in the [facility] on 27Mar2022, he was febrile and was associated with dyspnea, left sided chest tightness, and sore throat. He was given Cefdinir and released. Following that he came back to the [facility] on for concerns of skin rash that was recorded ast itchy and mostly located on his hands and feet as well as some on upper trunk and neck. He was transitioned to Azithromycin and this resulted in resolving of his rash and itching. The patient also endorses yesterday he started taking Benadryl 50mg by mouth every 6 hours. Upon further questioning this is also when his dizziness started. He feels it is hard to describe but just like an overall lightheaded ness feeling, this was associated with some jitteriness as well as increase in dry mouth and sore throat. In the EMD the patient had a D-dimer drawn which was elevated and had a CTA of his chest performed and for his dizziness had CT non-con of the head completed without acute process. He had an ECG completed which was concerned for incomplete RBB and the hospitalist service was consulted for admission. The patient's symptoms are likely related to his Benadryl dosage. Will place on telemetry overnight as well as check ECHO in the morning. He was given Levaquin in conjunction with his Azithromycin that he took this morning. This will be sufficient coverage until morning. The patient [place], he knows one other fraternity brother that was ill with pneumonia. He denies any mold or standing water in or around the house. He is without WBC elevation and not hypoxic at this time. Will provide another liter or Pedraza's solution for hydration overnight as he is with dry mucous membranes and has not been able to take much fluid in orally over the past 3 days secondary to sleeping as well as coughing. He was also noted to have an incidental thyroid nodule on his CT scan of chest- 1.5 cm right lobe thyroid nodule- will send TSH and Cortisol levels and follow up imaging should be performed. Patient was informed of this. COVID test on admission is: NEGATIVE Principal Diagnosis dizziness Discharge Exam Constitutional WD/WN, vitals as above Eyes PERRL, conjunctivae normal, anicteric sclerae Respiratory normal respiratory effort, lungs clear to auscultation Auscultation: no crackles, no rales, no rhonchi and no wheezes Cardiovascular Rate/Rhythm: regular rate and regular rhythm Heart Sounds: no gallop, no murmur and no cardiac rub Vessels: normal peripheral pulses; no JVD Extremities: no edema Gastrointestinal (Abdomen) Inspection/Auscultation: abdomen not distended Percussion/Palpation: abdomen soft; abdomen nontender and no guarding Musculoskeletal no cyanosis or clubbing, extremities motor strength 5/5 Skin no rashes, warm and dry Neurologic PERRL, EOMI, accommodation nl, no face palsy, no dysarthria CN's II-XI intact bilaterally and moves all extremities Psychiatric Orientation: alert and oriented x 3 Discharge Data Allergies Allergy/AdvReac Type Severity Reaction Status Date / Time cefdinir Allergy Intermediate RASH--WAS Verified 03/30/22 16:30 TAKING DOXYCYCLINE AT SAME TIME. doxycycline Allergy Intermediate RASH--WAS Verified 03/30/22 16:30 TAKING CEFDINIR AT THE SAME TIME. milk AdvReac Intermediate Gastrointestinal Verified 03/30/22 16:30 Upset Consultations 03/30/22 21:28 ED Decision to Admit Stat Ordered Studies 03/30/22 18:16 CT angio chest PE protocol Stat CT head/brain wo con Stat Hospital Course (1) Light-headedness: Cam Orellana is a 22y/o M who presented to the ED for concerns of persistent dizziness and continued cough over the last several days. Lightheadedness: - Likely related to Benadryl usage at 50mg PO q6 hours, in the setting of acute illness and dehydration - CT head demonstrating no acute intracranial findings - resolved prior to discharge - advised discontinuation of regular usage of antihistamines - use of Meclizine Left lower lobe pneumonia: - CT Chest demonstrating left lower lobe consolidation with progression as compared to CXR from 03/27 - procalcitonin negative on admission - had adverse reaction (rash) from Cefdinir as outpatient for this illness; transitioned to Azithromycin which demonstrated improvement in URI symptoms prior to admission - changed to Levaquin in ED given concerns of dizziness - Tessalon perles 200mg PRN for continued cough - Nasacort for nasal congestion symptoms in place of previous Benadryl use - continue Levaquin 750mg daily Thyroid gland nodule: - 1.5 cm right thyroid nodule noted on CT Chest - TSH 0.85 - follow-up thyroid ultrasound as outpatient (2) Pneumonia: (3) Sore throat: (4) Incidentaloma of thyroid gland: Total Time Total Time Spent Total Time Spent (In Minutes): 30 Discharge Plan Discharge Items Patient Disposition: Home - Self-Care Reason For Visit: DIZZINESS, PNEUMONIA Discharge Diagnosis: dizziness Condition on Discharge: Good Activity: Per Instructions section Non-emergency contact: Primary Care Provider Call non-emergency contact if: you have any medication questions, your symptoms worsen and you have a fever Follow-up/Referrals: Darvin Mckeon MD [Resident] - (PLEASE CALL YOUR PRIMARY CARE PROVIDER TO SCHEDULE A DISCHARGE FOLLOW-UP APPOINTMENT WITHIN 7-10 DAYS.) Diet: Regular Addtl Attending Provider Instructions: You were seen and admitted for concerns of persistent dizziness in the setting of a recent pneumonia, and frequent Benadryl use over the last week. As these symptoms have improved at this time with continued avoidance of these medications while you are recovering from this illness as those dizziness symptoms will recur. If you notice continued concerns over the pneumonia or dizziness, please call [phone], and ask to leave a message for Dr. Mckeon. Pending Studies at Discharge: No Stand-Alone Forms: My [facility] [employer], Smoking Cessation Medications and DC Order Prescriptions: New levofloxacin 750 mg tablet 750 mg PO DAILY 4 Days Qty: 4 RF: 0 triamcinolone acetonide [Nasacort] 55 mcg aerosol,spray 1 spray intranasal DAILY 30 Days Qty: 16.9 RF: 0 benzonatate 200 mg capsule 200 mg PO BID PRN (Reason: cough) Qty: 10 RF: 0 Continued acetaminophen [Tylenol Extra Strength] 500 mg Tablet 1,000 mg PO DIRECTED PRN (Reason: FEVER/PAIN) RF: 0 ibuprofen [Advil] 200 mg Tablet 600 mg PO DIRECTED PRN (Reason: FEVER/PAIN) RF: 0 Discontinued azithromycin [Zithromax Z-Efrain] 250 mg tablet See Rx Instructions .ROUTE .COMPLEX Qty: 6 RF: 0 Discharge Orders: Discharge Order (Routine); Ordered 03/31/22 Ordered By: Darvin Mckeon Admission Data Admit Date/Time: 03/30/22 21:52 Attending Provider: Arin Wiseman Admit Provider: Damaris Johnson Primary Care Provider: PCP,NO Other Providers: Damaris Johnson Other Interventions: Discharge Summary Assessment (RN) Last Done: 03/31/22 11:47 Supervising Physician Co-Signing Physician Notes Resident Physician Supervision Note: I independently interviewed and examined the patient and verified the [place] history and physical, reviewed labs and image studies and agree with resident Dr. Mckeon findings and care plan. Resident Activity Tracking Resident Involvement: Resident Care Provided Care Provided: Adult Hospital Medicine
[2022-03-31] MEDS ORDERED: guaiFENesin/DEXTROM SYRUP 200MG/20MG 10ML UDC PO PRN (10:02)
[2022-03-31] MEDS ORDERED: ONDANSETRON 4 MG OD TAB PO PRN (11:17)
--- NOTE | 2022-03-31 12:06 | XCELERA ---
[id number]
--- NOTE | 2022-04-01 22:01 | Electrocardiogram Report ---
Test Reason : Blood Pressure : / mmHG Vent. Rate : 074 BPM Atrial Rate : 074 BPM P-R Int : 176 ms QRS Dur : 102 ms QT Int : 382 ms P-R-T Axes : 052 093 064 degrees QTc Int : 424 ms Normal sinus rhythm Rightward axis Borderline ECG When compared with ECG of 30-MAR-2022 15:32, Incomplete right bundle branch block is no longer Present Confirmed by Shine Muniz ([id number]) on 04/01/2022 10:00:29 PM Referred By: REFERRED SELF Confirmed By:Shine Muniz
[2022-04-02 14:19] LABS: EBV Nuclear Ag Antibody <18.00 U/mL; Epstein Barr Virus Early Ag Ab <9.00 U/mL
== END 2022-03-31 14:27 | disposition home or self-care (01) | DRG 195 ==
LOC: ED 14:41 → 2W 21:52 → SUATTDRO 21:52 → 2W 22:48